=== PATIENT | female | born 1935 | race Caucasian/White ===

== ENCOUNTER 2019-04-17 12:43 | Emergency (ER) | payer MEDICARE ==
[2019-04-17 13:01] VITALS: BP 103/61; PULSE 80; TEMP 98.8; BMI 33.3
--- NOTE | 2019-04-17 13:22 | PDOC ---
History of Present Illness - General Chief Complaint: Head/Neck problem Stated Complaint: LT ARM NUMBNESS Time Seen by Provider: 04/17/19 13:07 History Source: Patient, Family (daughter) - History of Present Illness Initial Comments: 04/17/19 13:15 83 y/o/f here for left arm pain since last night. She states the pain started last night as she was getting into bed. She has not taken any medications for the pain and states it is a 10/10 now. The pain goes from her neck and down her arm. She states the pain is worse when she tries to lift anything in her left arm and her left arm feels weak to her. She also complains of some numbness in her left arm. She does not have any pain on her right arm. She denies any falls , trauma, or lifting heavy objects. She denies any chest pain, SOB, abd pain, fever, chills, N/V/D. PMHx: HTN, arthritis HLD SHx: denies Social: denies alcohol and tobacco use Past History - Past Medical History Allergies/Adverse Reactions: Allergies Allergy/AdvReac Type Severity Reaction Status Date / Time Penicillins Allergy Verified 04/17/19 13:01 COPD: No - Suicide/Smoking/Psychosocial Hx Smoking History: Never smoked Hx Alcohol Use: No Drug/Substance Use Hx: No Review of Systems - Review of Systems Constitutional: No: Chills, Fever HEENTM: No: Nose Congestion Respiratory: No: Cough, Shortness of Breath Cardiac (ROS): No: Chest Pain, Lightheadedness ABD/GI: No: Diarrhea, Nausea, Vomiting : No: Burning, Hematuria Musculoskeletal: Yes: Joint Pain (right arm), Muscle Weakness (right arm) Integumentary: No: Rash Neurological: Yes: Numbness. No: Headache Endocrine: No: Excessive Sweating *Physical Exam - Vital Signs Last Vital Signs Temp Pulse Resp BP Pulse Ox 98.8 F 80 16 103/61 95 04/17/19 12:45 04/17/19 12:45 04/17/19 12:45 04/17/19 12:45 04/17/19 12:45 - Physical Exam General Appearance: Yes: Nourished, Appropriately Dressed HEENT: positive: EOMI, Normal Voice, Symmetrical Neck: positive: Trachea midline, Supple. negative: Tender Respiratory/Chest: positive: Lungs Clear, Normal Breath Sounds. negative: Accessory Muscle Use Cardiovascular: positive: Regular Rhythm, Regular Rate, S1, S2 Gastrointestinal/Abdominal: positive: Normal Bowel Sounds, Soft Musculoskeletal: positive: Other (decreased passive ROM with flexion, abduction , extension of right shoulder secondary to pain). negative: CVA Tenderness, Vertebral Tenderness Extremity: positive: Normal Capillary Refill. negative: Swelling Integumentary: positive: Normal Color Neurologic: positive: Fully Oriented, Alert, Other (RUE 5/5 strength. LUE 3/5 strength. decreased sensation in left arm) Heart Score/ECG Review #1 ECG reviewed & interpreted by me at: 14:36 General ECG Interpretation: Sinus Rhythm 04/17/19 14:36 vent rate: 71bpm HI interval: 188ms QRS duration: 90 ms QT/QTc: 406/441ms P-R-T axes * 1 27 Sinus rhythm. no acute ischemic changes ED Treatment Course - LABORATORY CBC & Chemistry Diagram: 04/17/19 14:14 04/17/19 14:14 Medical Decision Making - Medical Decision Making 04/17/19 13:28 -83 y/o/f here for left arm pain since last night. She states the pain started last night as she was getting into bed. She has not taken any medications for the pain and states it is a 10/10 now. The pain goes from her neck and down her arm. -On exam patient has limited ROM of left shoulder secondary to pain. decreased sensation on left arm. 3/5 strength of LUE. -Patient last known well time was last night prior to going to bed. 04/17/19 13:45 -Workup with CBC, CMP, cardiac profile, EKG, CT head w/o contrast, Xray of chest , left shoulder, left scapula, left clavicle, and left humerus. -Pain control with Offirmev 04/17/19 16:18 -Patient's pain is better after treatment, able to move left arm more comfortably. -X-rays reviewed - no acute pathology -Patient at CT scan 04/17/19 18:12 -Patient CT head scan negative -Cervical CT scan shows multilevel canal stenosis -Patient is able to move arm more comfortably and states pain is better. Given Flexiril for better pain control. -Patient discharged with instructions to follow up with her primary care doctor. *DC/Admit/Observation/Transfer Diagnosis at time of Disposition: Left shoulder pain Qualifiers: Chronicity: unspecified Qualified Code(s): M25.512 - Pain in left shoulder - Discharge Dispostion Disposition: HOME Condition at time of disposition: Good - Referrals Referrals: Ashlyn Grimes [Primary Care Provider] - - Patient Instructions Printed Discharge Instructions: DI for Shoulder Pain Additional Instructions: If you have worsening pain, numbness, weakness or other concerns return to the ER. Please follow up with your primary care doctor in the next 3-4 days. - Post Discharge Activity
[2019-04-17] MEDS ORDERED: ACETAMINOPHEN 1000 MG/100 ML VIAL (NON FORMULARY) IVPB ONE (13:41)
[2019-04-17] MEDS ORDERED: ACETAMINOPHEN INJECTION 100 ML IVPB ONE (14:02)
[2019-04-17 14:22] LABS: BASO % 1.2 % (0-2.0); EOS % 10.3 % (0-4.5); HEMATOCRIT 35.8 % (32.4-45.2); LYMPH % 41.7 % (8-40); MCH 31.4 pg (25.7-33.7); MCHC 33.5 g/dl (32.0-36.0); MEAN CELL VOLUME 93.9 fl (80-96); MEAN PLT VOLUME 8.4 fl (7.5-11.1); MONO % 16.9 % (3.8-10.2); NEUT % 29.9 % (42.8-82.8); PLATELET COUNT 308 K/MM3 (134-434); RBC 3.81 M/mm3 (3.60-5.2); RDW 14.2 % (11.6-15.6); WHITE BLOOD COUNT 5.5 K/mm3 (4.0-10.0)
[2019-04-17 14:40] LABS: ALBUMIN 3.6 g/dl (3.4-5.0); BILIRUBIN,TOTAL 0.4 mg/dL (0.2-1); BLOOD UREA NITROGEN 20.7 mg/dL (7-18); POTASSIUM 4.9 mmol/L (3.5-5.1); TOT PROT 6.9 g/dl (6.4-8.2)
--- NOTE | 2019-04-17 16:53 | PDOC ---
Documentation entered by Noemi Hernandes SCRIBE, acting as scribe for Mervin Self MD. Mervin Self MD: This documentation has been prepared by the Cecilio kong Natalie, SCRIBE, under my direction and personally reviewed by me in its entirety. I confirm that the documentation accurately reflects all work, treatment, procedures, and medical decision making performed by me. Attending Attestation - Resident Resident Name: ShannanKishancoralmehnaz Delfin - ED Attending Attestation I have performed the following: I have examined & evaluated the patient, The case was reviewed & discussed with the resident, I agree w/resident's findings & plan, Exceptions are as noted - HPI HPI: 04/17/19 14:39 The patient is an 83-year-old female, with a past medical history of HTN, HLD, and arthritis, who presents to the ED with LT arm pain that began last night. She describes the pain as a 10/10 in severity, radiating from her neck down to her arm, and exacerbated she attempts to lift something. She states that her arm feels weak and numb. She denies any recent strenuous activity, trauma, or falls. The patient denies any fevers, chills, nausea, vomiting, or diarrhea. She denies any chest pain or shortness of breath. Allergies: Penicillins. PCP: Dr. Grimes - Physicial Exam PE: 04/17/19 14:39 Vitals: Triage Vital signs reviewed General Appearance: no acute distress, well nourished well developed, Head: Atraumatic, normocephalic Neck: Supple;No Nuchal rigidity Cardiac: Regular rate and rhythm, no murmurs, no rubs, no gallops, Lungs: Clear to auscultation bilateral, good air movement bilaterally, Extremities: (+)LT shoulder pain with range of motion. No weakness or numbness. No cyanosis, clubbing, or edema Skin: Warm and dry, no rashes or lesions, no petechiae Neuro: AOX3; Cranial Nerves 2-12 grossly intact, Strength intact to all extremities, Sensation intact to all extremities Psych: normal mood, normal affect - Medical Decision Making 04/17/19 16:53 History and exam consistent with radiculopathy Imaging pending Dr. Alves to follow up results and disop
[2019-04-17] MEDS ORDERED: CYCLOBENZAPRINE HCL 10 MG TABLET (FP) ONE (18:12)
[2019-04-17] MEDS ORDERED: CYCLOBENZAPRINE HCL 10 MG TABLET (FP) PO ONE ×2 (18:12→18:13)
--- NOTE | 2019-04-18 15:08 | EKG ---
Test Reason : Blood Pressure : / mmHG Vent. Rate : 071 BPM Atrial Rate : 071 BPM P-R Int : 188 ms QRS Dur : 090 ms QT Int : 406 ms P-R-T Axes : 000 001 027 degrees QTc Int : 441 ms SINUS RHYTHM WITH PREMATURE ATRIAL COMPLEXES OTHERWISE NORMAL ECG WHEN COMPARED WITH ECG OF 03-APR-2010 15:28, PREMATURE ATRIAL COMPLEXES ARE NOW PRESENT T WAVE INVERSION NOW EVIDENT IN LATERAL LEADS Confirmed by MD CHINMAY, RAGHAVENDRA ([id number]) on 04/18/2019 3:08:26 PM Referred By: Confirmed By:RAGHAVENDRA MOY MD
== END 2019-04-17 18:26 | disposition home or self-care (01) ==
LOC: JER 12:43
PROC: 3E033NZ Introduction of Analgesics, Hypnotics, Sedatives into Peripheral Vein, Percutaneous Approach (ICD-10-PCS; principal; 2019-04-17)
DX: M25.512 Pain in left shoulder (principal)
CPT/HCPCS: 36415; 70450-TC; 71045-TC-FY; 72125-TC; 73000-TC-LT-FY; 73010-TC-FY; 73030-TC-LT-FY; 73060-TC-LT-FY; 80053; 82550; 82553; 84484; 85025; 93005; 93010; 96374; 99282-25; J0131